=== PATIENT | female | born 1955 | race Caucasian/White ===

== ENCOUNTER → 2023-12-02 15:12 | Outpatient (BNVA) | payer MEDICARE, SELFPAY | PROVIDERS: PCP Electrodiagnostic Medicine; Visit Provider Internal Medicine Cardiovascular Disease | DX: I25.2 Old myocardial infarction (principal); I49.8 Other specified cardiac arrhythmias; R07.9 Chest pain, unspecified | CPT/HCPCS: 93005; 99215 ==

== ENCOUNTER 2023-12-28 07:06 | Outpatient (CLI) | payer MEDICARE, SELFPAY ==
--- NOTE | 2023-12-28 | ECG_ITS ---
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 Interpretive Statements Lung unchanged pre/post procedure; Intraprocedure shortess of breath; Symptoms resoled by discharge. PROCEDURE: At the baseline, the EKG revealed normal sinus rhythm with occasional PVCs. The baseline heart was 65 bpm with a blood pressue of 153/89 mm of Hg Lexiscan was infused over a period of 20 seconds. A total of 0.4 milligrams of Lexiscan was infused. The stress phase was continued for a total of 5 minutes. Heart rate at the end of the stress phase was 76 bpm with a blood pressure 166/80 mm of Hg. The EKG at the peak infusion revealed no significant changes. Sestamibi was injected 20 seconds after the Lexiscan infusion. Heart rate at the end of the recovery phase was 73 bpm with a blood pressure of 169/80 mm of Hg. CONCLUSION: 1. No significant EKG changes with the LexiScan infusion 2. No LexiScan induced chest pain or cardiac arrhythmia 3. Normal blood pressure and heart rate response 4. Sestamibi/sestamibi perfusion scan pending; see separate report. Electronically Signed On 01-03-2024 19:06:34 CDT by Ayana Jaimes M.D. [email or web address]
--- NOTE | 2023-12-28 07:22 | NMCV_ITS ---
NM shira perf SPECT r/s* [id number] Nadira Magana Age: 68 Gender: F : 1955 Exam Date: 12/28/2023 08:23 Ordering Phys: Ayana Jaimes MD ([email or web address]) Technologist: TAMMI Parra Exam Location: [facility] Indications: cp STRESS TEST Please [facility] IMAGE PROTOCOL Rest/Stress 1 Lexiscan Day Radiopharmaceutical Dose (mCi) Administration Site Administered by Rest: Tc-99m 10.1 IV TAMMI Parra Sestamibi Stress:Tc-99m 32.4 IV TAMMI Beth Sestamibi Rest: 28-Dec-2023 60 Discovery 630 Stress: 28-Dec-2023 30 Discovery 630 0.4mg Lexiscan. Images obtained in supine and prone position. SPECT RESULTS Technical Quality: Good Raw Data Analysis: Normal Image Corrections: No attenuation or motion correction applied Summed Stress Score: 23 Summed Rest Score: 21 Summed Difference Score: 3 PERFUSION FINDINGS A moderate to large area of moderate to severely decreased tracer uptake was noted involving the inferior, inferolateral, anterolateral, anterior and apical regions. A small to moderate area of minimal reversibility was noted in the mid anterior, anterolateral and apical lateral regions. FUNCTIONAL RESULTS (calculated via Gated SPECT) Stress Image LV EF (%): 55 Stress EDV (mL):103 TID: 1.14 Stress ESV (mL):46 FUNCTIONAL FINDINGS: Segmental wall motion analysis revealing no gross wall motion abnormalities IMPRESSIONS 1. 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 Areas of nathan-infarct ischemia, mostly in the circumflex territory. 2. Normal LV ejection fraction 55%. 3. LV wall motion analysis revealing no gross wall motion abnormalities. 4. Mildly dilated LV cavity with an end-systolic volume of 46 mL No similar previous studies are available for comparison Dr Ayana Jaimes MD FACC (Electronically Signed) Final Date: 28 December 2023 22:31 S
[2023-12-28 07:23] VITALS: BMI 36.2
[2023-12-28] MEDS: regadenoson 0.4 Mg/5 ml Syringe IVP (09:09)
[2023-12-28 09:26] VITALS: BP 168/82; PULSE 79
== END 2023-12-28 07:07 | disposition home or self-care (01) ==
PROVIDERS: PCP Electrodiagnostic Medicine; Visit Provider Internal Medicine Cardiovascular Disease
DX: Z98.61 Coronary angioplasty status (principal); R94.39 Abnormal result of other cardiovascular function study
CPT/HCPCS: 36415; 78452; 93017; 96374; A9500; J2785